=== PATIENT | male | born 1985 | race Caucasian/White ===

== ENCOUNTER → 2016-10-22 | Outpatient (CLI) | payer BC ==
--- NOTE | 2016-10-22 10:51 | RAD ---
Right upper quadrant abdominal ultrasound, 10/22/2016: History: Abdominal pain and vomiting The gallbladder is within normal limits in size. There is no sonographic evidence of cholelithiasis. The gallbladder wall measures approximately 3 mm which is at the upper limits of normal in thickness. Reportedly the patient was tender to transducer pressure over the gallbladder. The common hepatic duct measures 5 mm which is within normal limits. No intrahepatic biliary ductal dilatation is seen. The visualized portions of the liver and right kidney are unremarkable. The pancreatic body is unremarkable. Other portions of the pancreas were obscured by overlying bowel. IMPRESSION: Borderline gallbladder wall thickening without evidence of cholelithiasis.
== END | disposition home or self-care (01) ==
LOC: US 10:12
PROVIDERS: ATTEND Family Medicine
DX: R10.11 Right upper quadrant pain (principal)
CPT/HCPCS: 76705